=== PATIENT | male | born 1985 | race Caucasian/White ===

== ENCOUNTER 2016-12-29 11:18 | Emergency (ER) | payer SELFPAY ==
[~2016-12-29] VITALS: Ht 163.8 cm; Wt 108.9 kg
[2016-12-29 11:25] VITALS: BP 154/95
--- NOTE | 2016-12-29 11:53 | NUR ---
31M BIB FAMILY C/O HEADACHE X 3 DAYS; PT STATES NO TRAUMA OR INJURY TO HEAD. HX: PT DENIES RX: PT DENIES. SKIN IS PINK/WARM/DRY; AAOX4 WITH EVEN AND STEADY GAIT; LUNGS CLEAR BL; HR EVEN AND REGULAR; PT DENIES ANY FEVER, CP, SOB, OR COUGH AT THIS TIME; VSS; PATIENT POSITIONED FOR COMFORT; HOB ELEVATED; BEDRAILS UP X2; BED DOWN. ER MD MADE AWARE OF PT STATUS.
--- NOTE | 2016-12-29 12:11 | NUR ---
Patient being evaluated by physician at bedside.
--- NOTE | 2016-12-29 12:14 | NUR ---
Patient being evaluated by Dr. Lizarraga at bedside.
[2016-12-29] MEDS ORDERED: KETOROLAC 60 MG/2 ML VIAL IM ONE (12:15)
--- NOTE | 2016-12-29 12:31 | NUR ---
pt ambulate to restroom with even and steady gait.
--- NOTE | 2016-12-29 12:44 | NUR ---
Dr. Lizarraga evaluating patient at bedside.
--- NOTE | 2016-12-29 13:07 | NUR ---
Patient discharged with v/s stable. Written and verbal after care instructions given and explained. Patient alert, oriented and verbalized understanding of instructions. Ambulatory with steady gait. All questions addressed prior to discharge. ID band removed. Patient advised to follow up with PMD. Rx of motrin and norco 5-325 given. Patient educated on indication of medication including possible reaction and side effects. Opportunity to ask questions provided and answered.
[2016-12-29 13:11] VITALS: BP 139/88
== END 2016-12-29 13:07 | disposition home or self-care (01) ==
LOC: MED 11:18
DX: R51 Headache (principal)
CPT/HCPCS: 96372; 99283; J1885

== ENCOUNTER 2017-12-04 15:09 | Emergency (ER) | payer MEDICAID ==
[~2017-12-04] VITALS: Ht 162.6 cm; Wt 104.3 kg
[2017-12-04 15:12] VITALS: BP 155/109
--- NOTE | 2017-12-04 15:45 | NUR ---
PATIENT PRESENTS TO ED WITH COMPLAINTS OF DIZZINESS, N/V, AND HEADACHES X 2 DAYS. PATIENT STATES HE DOES NOT FEEL WELL AND IF HE GETS UP TOO FAST HE GETS DIZZY. BP IS ELEVATED. SKIN IS PINK/WARM/DRY; AAOX4 WITH EVEN AND STEADY GAIT; LUNGS CLEAR BL; HR EVEN AND REGULAR; PT DENIES ANY FEVER, CP, SOB, OR COUGH AT THIS TIME; PATIENT STATES PAIN OF 7/10 AT THIS TIME; VSS; PATIENT POSITIONED FOR COMFORT; HOB ELEVATED; BEDRAILS UP X1; BED DOWN. ER MD MADE AWARE OF PT STATUS.
[2017-12-04] MEDS ORDERED: KETOROLAC 60 MG/2 ML VIAL IM ONE (16:30)
[2017-12-04 16:56] VITALS: BP 151/100
== END 2017-12-04 16:56 | disposition home or self-care (01) ==
LOC: MED 15:09
DX: S46.911A Strain of unspecified muscle, fascia and tendon at shoulder and upper arm level, right arm, initial encounter (principal); S46.912A Strain of unspecified muscle, fascia and tendon at shoulder and upper arm level, left arm, initial encounter; F41.9 Anxiety disorder, unspecified; R03.0 Elevated blood-pressure reading, without diagnosis of hypertension; X58.XXXA Exposure to other specified factors, initial encounter; Y93.89 Activity, other specified; Y99.0 Civilian activity done for income or pay; Y92.89 Other specified places as the place of occurrence of the external cause
CPT/HCPCS: 96372; 99283; J1885

== ENCOUNTER 2018-03-06 08:55 | Emergency (ER) | payer MEDICAID ==
[~2018-03-06] VITALS: Ht 162.6 cm; Wt 104.3 kg
[2018-03-06 09:03] VITALS: BP 142/94
[2018-03-06] MEDS: ONDANSETRON 4 MG ODT PO ONE (09:57)
[2018-03-06] MEDS: DICYCLOMINE HCL LIQUID 20 MG, ALUMINUM HYD/MAG/SIMETHICONE 30 ML, LIDOCAINE VISCOUS 2% ... PO ONE ×3 (09:57)
[2018-03-06 10:55] VITALS: BP 133/84
== END 2018-03-06 10:55 | disposition home or self-care (01) ==
LOC: MED 08:55
DX: R10.13 Epigastric pain (principal); R11.2 Nausea with vomiting, unspecified; R19.7 Diarrhea, unspecified
CPT/HCPCS: 99283; S0119; 81002

== ENCOUNTER 2019-04-17 09:24 | Emergency (ER) | payer SELFPAY ==
[~2019-04-17] VITALS: Ht 162.6 cm; Wt 112.0 kg
[2019-04-17 09:34] VITALS: BP 150/70
--- NOTE | 2019-04-17 09:44 | NUR ---
Pt taken to bed 9.
[2019-04-17] MEDS ORDERED: FLUORESCEIN OPTH STRIP 1 MG OP ONE (09:45)
[2019-04-17] MEDS ORDERED: TETRACAINE HCL/PF 0.5% OPTH 4 ML BTL OP ONE (09:45)
--- NOTE | 2019-04-17 09:50 | NUR ---
Note nik in EDM - 04/17/19 at 1023 by LUAN PT PRESENTS TO THE ED WITH C/O R SIDED EYE DISCOMFORT. 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 PT STATES THAT HE FLUSED EYE WITH CLEAR EYES AND WATER AFTER THE INCIDENT. PT DENIES PAIN AT THIS TIME BUT STATES THAT HE IS IN DISCOMFORT AND OCCASIONALY FEELS BURNING. PT POSITIONED FOR COMFORT WITH ROOM LIGHTS DIMMED. VICTORINO SMITH TO SEE PT. VICKIE HX: N/A RX: N/A
--- NOTE | 2019-04-17 09:50 | NUR ---
PT PRESENTS TO THE ED WITH C/O R SIDED EYE DISCOMFORT. 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 PT STATES THAT HE FLUSED EYE WITH CLEAR EYES AND WATER AFTER THE INCIDENT. PT DENIES PAIN AT THIS TIME BUT STATES THAT HE IS IN DISCOMFORT AND OCCASIONALY FEELS BURNING. PT POSITIONED FOR COMFORT WITH ROOM LIGHTS DIMMED. ER TO SEE PT. VICKIE HX: N/A RX: N/A
--- NOTE | 2019-04-17 10:15 | NUR ---
Patient being evaluated by DR KENNY at bedside.
--- NOTE | 2019-04-17 10:37 | NUR ---
Patient discharged with v/s stable. Written and verbal after care instructions given and explained. Patient alert, oriented and verbalized understanding of instructions. Ambulatory with steady gait. All questions addressed prior to discharge. ID band removed. Patient advised to follow up with PMD. Rx of POLYTRIM given. Patient educated on indication of medication including possible reaction and side effects. Opportunity to ask questions provided and answered.
[2019-04-17 10:38] VITALS: BP 137/83
== END 2019-04-17 10:37 | disposition home or self-care (01) ==
LOC: MED 09:24
DX: S05.01XA Injury of conjunctiva and corneal abrasion without foreign body, right eye, initial encounter (principal); H40.9 Unspecified glaucoma; W29.4XXA Contact with nail gun, initial encounter; Y93.89 Activity, other specified; Y92.89 Other specified places as the place of occurrence of the external cause; Y99.8 Other external cause status
CPT/HCPCS: 99283

== ENCOUNTER 2020-07-30 08:21 | Emergency (ER) | payer MEDICAID ==
[~2020-07-30] VITALS: Ht 162.6 cm; Wt 117.9 kg
[2020-07-30 08:31] VITALS: BP 129/85
[2020-07-30 10:05] VITALS: BP 121/88
== END 2020-07-30 10:05 | disposition home or self-care (01) ==
LOC: MED 08:21
DX: R51.9 Headache, unspecified (principal); H53.9 Unspecified visual disturbance
CPT/HCPCS: 70450; 99284

== ENCOUNTER 2020-12-21 08:58 | Emergency (ER) | payer MEDICAID ==
[~2020-12-21] VITALS: Ht 162.6 cm; Wt 116.6 kg
[2020-12-21 09:17] VITALS: BP 144/83
--- NOTE | 2020-12-21 11:41 | NUR ---
PT CALLED IN LOBBY. NO RESPONSE.
--- NOTE | 2020-12-21 12:15 | NUR ---
2ND ATTEMPT TO CALL PT BACK. NO ANSWER
--- NOTE | 2020-12-21 12:40 | NUR ---
PATIENT LEFT WITHOUT BEING SEEN BY DR. MIRANDA. NO FURTHER CARE PROVIDED FOR PATIENT.
--- NOTE | 2020-12-21 15:40 | NUR ---
Billy zaragoza in [facility] - 12/21/20 at 1541 by [email or web address] PATIENT LEFT WITHOUT BEING SEEN BY DR. MIRANDA. NO FURTHER CARE PROVIDED FOR PATIENT.
== END 2020-12-21 11:41 | disposition left against medical advice (07) ==
LOC: MED 08:58
DX: R10.13 Epigastric pain (principal); K92.0 Hematemesis; Z53.21 Procedure and treatment not carried out due to patient leaving prior to being seen by health care provider

== ENCOUNTER 2021-06-11 19:15 | Emergency (ER) | payer MEDICAID ==
--- NOTE | 2021-06-11 19:48 | NUR ---
1ST CALL, NO ANSWER
--- NOTE | 2021-06-11 20:35 | NUR ---
2ND CALL NO ANSWER
--- NOTE | 2021-06-11 20:59 | NUR ---
3RD CALL NO ANSWER
--- NOTE | 2021-06-11 20:59 | NUR ---
PATIENT LEFT WITHOUT BEING SEEN BY DR. MIRANDA. NO FURTHER CARE PROVIDED FOR PATIENT.
== END 2021-06-11 20:59 | disposition left against medical advice (07) ==
LOC: MED 19:15
DX: M79.643 Pain in unspecified hand (principal); Z53.21 Procedure and treatment not carried out due to patient leaving prior to being seen by health care provider